=== PATIENT | male | born 1945 | race Two or more races ===

== ENCOUNTER 2024-12-03 13:02 | Inpatient (IN) | payer OTHER ==
[~2024-12-03] VITALS: Ht 172.7 cm; Wt 88.5 kg
[2024-12-03] MEDS ORDERED: 0.9 % SODIUM CHLORIDE 1,000 ML IV STA (17:15)
[2024-12-03] MEDS ORDERED: CIPROFLOXACIN IN 5 % DEXTROSE 400 MG/200 ML PIGGYBAG IV STA (17:16)
[2024-12-03] MEDS ORDERED: CIPROFLOXACIN IN 5 % DEXTROSE 400 MG/200 ML PIGGYBAG IV ONE (17:21)
[2024-12-03] MEDS ORDERED: DIATRIZOATE MEGLUMINE, SODIUM 30 ML BOTTLE ONE (17:42)
[2024-12-03 17:49] LABS: BASO % 0.3 % (0.1-1.2); EOS # 0.10 (0.04-0.54); EOS % 0.8 % (0.7-7.0); LYMPH # 1.29 (1.18-3.74); LYMPH % 10.5 % (19.3-53.1); MEAN PLATELET VOLUME 9.70 fl (9.4-12.4); MONO # 1.03 (0.24-0.82); MONO % 8.4 % (4.7-12.5); NEUT # 9.80 (1.56-6.13); NEUT % 79.7 % (34.0-71.1); RED CELL DISTRIBUTION WIDTH 12.8 % (11.6-14.4)
[2024-12-03 17:58] LABS: ERYTHROCYTE SEDIMENTATION RATE 13 mm/hr (0-20)
[2024-12-03 18:24] LABS: INR 1.15
[2024-12-03 18:38] LABS: ALT/SGPT 30 U/L (12-78); AST/SGOT 27 U/L (15-37); BILIRUBIN TOTAL 0.96 mg/dL (0.3-1.2); BUN CREA RATIO 12 (7.0-25.0); CREATININE SERUM 1.19 mg/dL (0.70-1.30); GFR 58.82; GLOBULINA 3.5 G/DL (2.4-3.5); GLUCOSE FASTING 109 mg/dL (65-100); OSMOLALITY SERUM 282 MOSM/KG (275-295)
[2024-12-03 18:39] LABS: PROSTATIC SPECIFIC ANTIGEN < 0.010 NG/ML (0.010-4.00)
[2024-12-03 19:29] LABS: URINE APPEARANCE Turbid; URINE BILIRRUBIN Small (NEGATIVE); URINE BLOOD Large; URINE COLOR Red; URINE GLUCOSE Negative (NEGATIVE); URINE KETONE Negative (NEGATIVE); URINE LEUKOCYTE Moderate; URINE NITRATE Positive; URINE UROBILINOGEN 0.2 E.U./dl
[2024-12-03 19:30] LABS: URINE BACTERIA 490.7 uL (0.0-1933); URINE WBC 43.6 uL (0.0-23.2)
[2024-12-03 19:31] LABS: URINE CAST 0.00 uL (0.0-1.40); URINE EPITHELIAL CELLS 0.3 uL (0.0-38.8); URINE PROTEIN 300 (NEGATIVE); URINE RBC > 10558.9 uL (0.0-20.8)
[2024-12-04] MEDS ORDERED: LOSARTAN POTASSIUM 50 MG TABLET PO SCH (09:00)
[2024-12-04] MEDS ORDERED: ACETAMINOPHEN 500 MG GEL..CAP PO PRN (09:00)
[2024-12-04] MEDS ORDERED: 0.9 % SODIUM CHLORIDE 1,000 ML IV SCH (09:00)
[2024-12-04] MEDS ORDERED: CEFTRIAXONE SODIUM 2,000 MG in 0.9 % SODIUM CHLORIDE 100 ML IV SCH (09:00)
[2024-12-04] MEDS ORDERED: FAMOTIDINE/PF 20 MG in 0.9 % SODIUM CHLORIDE 8 ML IV PUSH SCH (09:00)
[2024-12-04] MEDS ORDERED: AMIODARONE HCL 200 MG TABLET PO SCH (09:00)
[2024-12-04] MEDS ORDERED: TAMSULOSIN HCL 0.4 MG CAP PO SCH (09:00)
[2024-12-04] MEDS ORDERED: CEFTRIAXONE SODIUM 2,000 MG VIAL ONE (09:24)
[2024-12-04 10:26] VITALS: BP 134/96
[2024-12-04 20:55] VITALS: BP 113/73
[2024-12-05 03:30] VITALS: BP 120/73; O2SAT 98
[2024-12-05 06:22] LABS: BASO % 0.3 % (0.1-1.2); EOS # 0.12 (0.04-0.54); EOS % 0.9 % (0.7-7.0); LYMPH # 1.38 (1.18-3.74); LYMPH % 10.3 % (19.3-53.1); MEAN PLATELET VOLUME 10.60 fl (9.4-12.4); MONO # 1.23 (0.24-0.82); MONO % 9.2 % (4.7-12.5); NEUT # 10.58 (1.56-6.13); NEUT % 78.9 % (34.0-71.1); RED CELL DISTRIBUTION WIDTH 13.0 % (11.6-14.4)
[2024-12-05 07:06] LABS: ALT/SGPT 27.0 U/L (12-78); AST/SGOT 19.0 U/L (15-37); BILIRUBIN TOTAL 0.79 mg/dL (0.3-1.2); BUN CREA RATIO 13.0 (7.0-25.0); CREATININE SERUM 1.56 mg/dL (0.70-1.30); GFR 43.04; GLOBULINA 3.2 G/DL (2.4-3.5); GLUCOSE FASTING 76.0 mg/dL (65-100); OSMOLALITY SERUM 284.0 MOSM/KG (275-295)
[2024-12-05 09:55] VITALS: BP 113/67; O2SAT 100
[2024-12-05 16:42] VITALS: BP 141/82
[2024-12-06 03:59] VITALS: BP 128/83
[2024-12-06 05:52] LABS: BASO % 0.6 % (0.1-1.2); EOS # 0.25 (0.04-0.54); EOS % 2.9 % (0.7-7.0); LYMPH # 1.02 (1.18-3.74); LYMPH % 12.0 % (19.3-53.1); MEAN PLATELET VOLUME 10.20 fl (9.4-12.4); MONO # 0.93 (0.24-0.82); MONO % 10.9 % (4.7-12.5); NEUT # 6.24 (1.56-6.13); NEUT % 73.2 % (34.0-71.1); RED CELL DISTRIBUTION WIDTH 12.8 % (11.6-14.4)
[2024-12-06 06:17] LABS: URINE APPEARANCE Clear; URINE BILIRRUBIN Negative (NEGATIVE); URINE BLOOD Large; URINE COLOR Orange; URINE GLUCOSE Negative (NEGATIVE); URINE KETONE Negative (NEGATIVE); URINE LEUKOCYTE Trace; URINE NITRATE Negative; URINE PROTEIN Trace (NEGATIVE); URINE UROBILINOGEN 0.2 E.U./dl
[2024-12-06 06:18] LABS: URINE BACTERIA 32.4 uL (0.0-1933); URINE RBC 2132.1 uL (0.0-20.8); URINE WBC 61.6 uL (0.0-23.2)
[2024-12-06 06:19] LABS: URINE CAST 0.29 uL (0.0-1.40); URINE EPITHELIAL CELLS 0.6 uL (0.0-38.8)
[2024-12-06 07:26] LABS: ALT/SGPT 22.0 U/L (12-78); AST/SGOT 19.0 U/L (15-37); BILIRUBIN TOTAL 0.77 mg/dL (0.3-1.2); BUN CREA RATIO 13.0 (7.0-25.0); CREATININE SERUM 1.15 mg/dL (0.70-1.30); GFR 61.19; GLOBULINA 2.7 G/DL (2.4-3.5); GLUCOSE FASTING 81.0 mg/dL (65-100); OSMOLALITY SERUM 285.0 MOSM/KG (275-295)
[2024-12-06 10:20] VITALS: BP 149/84; O2SAT 97
[2024-12-06 18:34] VITALS: BP 125/74
[2024-12-07 03:57] VITALS: BP 138/76; O2SAT 97
[2024-12-07 08:46] VITALS: BP 143/91
[2024-12-07] MEDS ORDERED: AMLODIPINE BESYLATE 5 MG TABLET PO SCH (17:00)
[2024-12-07] MEDS ORDERED: CLOPIDOGREL BISULFATE 75 MG TABLET PO SCH (17:00)
[2024-12-07 19:07] VITALS: BP 142/88
[2024-12-08 03:41] VITALS: BP 135/82; O2SAT 99
[2024-12-08 08:34] VITALS: BP 148/82
[2024-12-08 11:42] LABS: BASO % 0.4 % (0.1-1.2); EOS # 0.17 (0.04-0.54); EOS % 2.4 % (0.7-7.0); LYMPH # 1.01 (1.18-3.74); LYMPH % 14.1 % (19.3-53.1); MEAN PLATELET VOLUME 9.90 fl (9.4-12.4); MONO # 0.80 (0.24-0.82); MONO % 11.2 % (4.7-12.5); NEUT # 5.13 (1.56-6.13); NEUT % 71.8 % (34.0-71.1); RED CELL DISTRIBUTION WIDTH 12.4 % (11.6-14.4)
[2024-12-08 12:33] LABS: ALT/SGPT 34.0 U/L (12-78); AST/SGOT 27.0 U/L (15-37); BILIRUBIN TOTAL 0.46 mg/dL (0.3-1.2); BUN CREA RATIO 11.0 (7.0-25.0); CREATININE SERUM 1.16 mg/dL (0.70-1.30); GFR 60.58; GLOBULINA 3.1 G/DL (2.4-3.5); GLUCOSE FASTING 98.0 mg/dL (65-100); OSMOLALITY SERUM 281.0 MOSM/KG (275-295)
== END 2024-12-08 15:02 | disposition home or self-care (01) | DRG 690 ==
LOC: ER 13:02 → SEC-K 12-04 08:55 → MEDJ 12-04 08:55
PROVIDERS: Internal Medicine; Internal Medicine Infectious Disease; ADMIT Internal Medicine; ATTEND Internal Medicine
PROC: BW21ZZZ Computerized Tomography (CT Scan) of Abdomen and Pelvis (ICD-10-PCS; principal; 2024-12-03)
PROC: BW21YZZ Computerized Tomography (CT Scan) of Abdomen and Pelvis using Other Contrast (ICD-10-PCS; 2024-12-03)
PROC: B24BYZZ Ultrasonography of Heart with Aorta using Other Contrast (ICD-10-PCS; 2024-12-06)
DX: N39.0 Urinary tract infection, site not specified (principal); I10 Essential (primary) hypertension; R31.0 Gross hematuria; N13.9 Obstructive and reflux uropathy, unspecified; N39.3 Stress incontinence (female) (male)

== ENCOUNTER 2025-01-27 19:40 | Emergency (ER) | payer OTHER ==
[~2025-01-27] VITALS: Ht 172.7 cm; Wt 83.9 kg
[2025-01-27] MEDS ORDERED: 0.9 % SODIUM CHLORIDE 1,000 ML IV SCH (21:45)
[2025-01-27 23:28] LABS: BASO % 0.8 % (0.1-1.2); EOS # 0.47 (0.04-0.54); EOS % 5.3 % (0.7-7.0); LYMPH # 1.76 (1.18-3.74); LYMPH % 20.0 % (19.3-53.1); MEAN PLATELET VOLUME 10.70 fl (9.4-12.4); MONO # 1.26 (0.24-0.82); NEUT # 5.22 (1.56-6.13); NEUT % 59.4 % (34.0-71.1); RED CELL DISTRIBUTION WIDTH 13.9 % (11.6-14.4)
[2025-01-27 23:50] LABS: URINE APPEARANCE Turbid; URINE BILIRRUBIN Small (NEGATIVE); URINE BLOOD Moderate; URINE COLOR Red; URINE GLUCOSE Negative (NEGATIVE); URINE KETONE Negative (NEGATIVE); URINE LEUKOCYTE Moderate; URINE NITRATE Positive; URINE UROBILINOGEN 0.2 E.U./dl
[2025-01-27 23:54] LABS: INR 1.08
[2025-01-27 23:54] LABS: URINE BACTERIA 572.3 uL (0.0-1933); URINE EPITHELIAL CELLS 4.9 uL (0.0-38.8); URINE WBC 117.8 uL (0.0-23.2)
[2025-01-27 23:58] LABS: MONO % 14.3 % (4.7-12.5)
[2025-01-28 00:01] LABS: ALT/SGPT 28.0 U/L (12-78); AST/SGOT 26.0 U/L (15-37); BILIRUBIN TOTAL 0.48 mg/dL (0.3-1.2); BUN CREA RATIO 13.0 (7.0-25.0); GFR 36.63; GLOBULINA 3.6 G/DL (2.4-3.5); GLUCOSE FASTING 139.0 mg/dL (65-100); OSMOLALITY SERUM 289.0 MOSM/KG (275-295)
[2025-01-28 00:11] LABS: CREATININE SERUM 1.79 mg/dL (0.70-1.30)
[2025-01-28 00:18] LABS: URINE CAST 0.70 uL (0.0-1.40); URINE PROTEIN 100 (NEGATIVE); URINE RBC > 10558.9 uL (0.0-20.8)
[2025-01-28] MEDS ORDERED: BACTRIM DS TAB1 EACH PO (01:31)
== END 2025-01-28 02:07 | disposition home or self-care (01) ==
LOC: ER 19:41
PROVIDERS: Student in an Organized Health Care Education/Training Program
DX: N30.91 Cystitis, unspecified with hematuria (principal); R31.9 Hematuria, unspecified; I10 Essential (primary) hypertension; Z88.5 Allergy status to narcotic agent; Z91.013 Allergy to seafood; Z91.018 Allergy to other foods
CPT/HCPCS: 36415; 74176; 96365; 96366; 99284; J7030